=== PATIENT | female | born 1960 | race Caucasian/White ===

== ENCOUNTER 2021-11-03 18:34 | Outpatient (REF) | payer MEDICARE, OTHER, SELFPAY ==
[2021-11-03 21:40] LABS: CREATININE 0.7 mg/dL (0.55-1.02); Estimated GFR 97.12 (mL/min/1.73m2)
== END 2021-11-03 18:35 | disposition home or self-care (01) ==
LOC: LBN 18:34
PROVIDERS: Visit Provider Family Medicine
DX: Z13.9 Encounter for screening, unspecified (principal)
CPT/HCPCS: 82565